=== PATIENT | male | born 1965 | race Caucasian/White ===

== ENCOUNTER 2022-10-27 06:20 | Emergency (ER) | payer BC, OTHER | END 2022-10-27 07:35 | disposition home or self-care (01) | LOC: JP.ED 06:20 | DX: S60.561A Insect bite (nonvenomous) of right hand, initial encounter (principal); I10 Essential (primary) hypertension; Z91.030 Bee allergy status; Z79.899 Other long term (current) drug therapy; W57.XXXA Bitten or stung by nonvenomous insect and other nonvenomous arthropods, initial encounter | CPT/HCPCS: 99283 ==